=== PATIENT | female | born 1995 | race American Indian/Alaskan Native ===

== ENCOUNTER 2016-10-20 17:28 | Outpatient (CLI) | payer OTHER ==
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
[2016-10-20 21:34] VITALS: BP 162/89
== END 2016-10-20 23:45 | disposition home or self-care (01) ==
LOC: ED 17:28 → TRG 17:28 → EDSTATUS 21:28 → TRG 21:30
PROVIDERS: ATTEND Obstetrics & Gynecology
DX: O26.892 Other specified pregnancy related conditions, second trimester (principal); V29.88XA Motorcycle rider (driver) (passenger) injured in other specified transport accidents, initial encounter; Z3A.27 27 weeks gestation of pregnancy; Y93.89 Activity, other specified; Y92.89 Other specified places as the place of occurrence of the external cause; Y99.8 Other external cause status
CPT/HCPCS: 59025; 99282